=== PATIENT | female | born 1950 | race American Indian/Alaskan Native ===

== ENCOUNTER 2016-12-06 20:49 | Inpatient (IN) | payer MEDICARE ==
[2016-12-06] MEDS ORDERED: KEPPRA 1,000 MG/NS 0.75% 100ML 100 ML IV ONE ×2 (20:56→21:08)
[2016-12-06] MEDS ORDERED: ATIVAN ONE (20:56)
[2016-12-06] MEDS ORDERED: ATIVAN IV ONE (21:04)
[2016-12-06] MEDS ORDERED: KEPPRA 1,000 MG in D5W 100 ML IV ONE (21:06)
--- NOTE | 2016-12-06 22:17 | Emergency Department Report ---
ED General Adult HPI - General Chief complaint: Seizure Stated complaint: TREMORS Time Seen by Provider: 12/06/16 21:33 Source: patient, EMS (ems notes not available at time of chart dictation), RN notes reviewed, old records reviewed Mode of arrival: Stretcher Limitations: Altered Mental Status, Physical Limitation - History of Present Illness Initial comments: This is a 66-year-old female, whom I have evaluated in the past. Has a past medical history of hypertension, high cholesterol, seizure disorder. Also has a history of psychiatric disease, and meningioma resection. She is brought to the hospital by EMS for focal twitching in the left upper extremity. The patient cannot describe how long it has been going on for. She cannot describe exacerbating or relieving factors. I briefly evaluated the patient when she was being triaged upon arrival with EMS. I was concerned for status epilepticus partialis continua, and verbally ordered 2 mg of Ativan and 1 g of Keppra. When I went to go evaluate the patient, she was sleepy, and would speak very softly. She follows some commands but not all commands. She was unable to describe exacerbating or relieving factors. History is limited as the patient appears to be postictal. -: unknown Quality: other (as per hpi) Consistency: other (as per hpi) Improves with: other (as per hpi) Worsens with: other (as per hpi) Associated Symptoms: other (as per hpi) - Related Data Previous Rx's Medication Instructions Recorded Last Taken Type ALPRAZolam [Xanax TAB] 0.25 mg PO Q8H #90 tablet 07/15/16 Unknown Rx Citalopram [Celexa] 20 mg PO QDAY #30 tablet 07/15/16 Unknown Rx Hydrochlorothiazide [HCTZ] 25 mg PO QDAY #30 tablet 07/15/16 Unknown Rx Lisinopril [Zestril TAB] 40 mg PO QDAY #30 tablet 07/15/16 Unknown Rx Lisinopril [Zestril TAB] 40 mg PO QDAY #30 tablet 07/15/16 Unknown Rx Simvastatin [Zocor TAB] 1 tab PO QHS #30 tablet 07/15/16 Unknown Rx amLODIPine [Norvasc] 10 mg PO QDAY #30 tablet 07/15/16 Unknown Rx levETIRAcetam [Keppra TAB] 750 mg PO BID #60 tablet 07/15/16 Unknown Rx risperiDONE [RisperDAL] 2 mg PO QDAY #30 tablet 07/15/16 Unknown Rx Ciprofloxacin HCl [Ciprofloxacin 500 mg PO BID #20 tablet 09/09/16 Unknown Rx TAB] metroNIDAZOLE [Flagyl] 500 mg PO Q12HR #20 tab 09/09/16 Unknown Rx oxyCODONE /ACETAMINOPHEN [Percocet 1 tab PO Q6HR PRN #20 tablet 09/09/16 Unknown Rx 5/325] Allergies Allergy/AdvReac Type Severity Reaction Status Date / Time red dye Allergy Severe Shortness Verified 12/08/14 13:55 of Breath ED Review of Systems ROS: Stated complaint: TREMORS Other details as noted in HPI Comment: Unobtainable due to pts medical conditions ED Past Medical Hx - Past Medical History Previous Medical History?: Yes Hx Hypertension: Yes (SINCE 1985; EF listed on chart as 40%(mentioned on pre- admission notes)) Hx Diabetes: No Hx Deep Vein Thrombosis: No Hx Pulmonary Embolism: No Hx GERD: Yes Hx Liver Disease: No Hx Sickle Cell Disease: No Hx Arthritis: Yes Hx Seizures: Yes (ONE SEIZURE 2009, from brain tumor) Hx Asthma: Yes Hx COPD: No Hx Tuberculosis: No Additional medical history: MRSA infection - Surgical History Past Surgical History?: Yes Hx Pacemaker: No Hx Internal Defibrillator: No Hx Cholecystectomy: Yes Additional Surgical History: BRAIN SURGERY/CS - Social History Smoking Status: Never Smoker Substance Use Type: None - Medications Home Medications: Home Medications Medication Instructions Recorded Confirmed Last Taken Type ALPRAZolam [Xanax TAB] 0.25 mg PO Q8H #90 tablet 07/15/16 Unknown Rx Citalopram [Celexa] 20 mg PO QDAY #30 tablet 07/15/16 Unknown Rx Hydrochlorothiazide [HCTZ] 25 mg PO QDAY #30 tablet 07/15/16 Unknown Rx Lisinopril [Zestril TAB] 40 mg PO QDAY #30 tablet 07/15/16 Unknown Rx Lisinopril [Zestril TAB] 40 mg PO QDAY #30 tablet 07/15/16 Unknown Rx Simvastatin [Zocor TAB] 1 tab PO QHS #30 tablet 07/15/16 Unknown Rx amLODIPine [Norvasc] 10 mg PO QDAY #30 tablet 07/15/16 Unknown Rx levETIRAcetam [Keppra TAB] 750 mg PO BID #60 tablet 07/15/16 Unknown Rx risperiDONE [RisperDAL] 2 mg PO QDAY #30 tablet 07/15/16 Unknown Rx Ciprofloxacin HCl [Ciprofloxacin 500 mg PO BID #20 tablet 09/09/16 Unknown Rx TAB] metroNIDAZOLE [Flagyl] 500 mg PO Q12HR #20 tab 09/09/16 Unknown Rx oxyCODONE /ACETAMINOPHEN [Percocet 1 tab PO Q6HR PRN #20 tablet 09/09/16 Unknown Rx 5/325] ED Physical Exam - General Limitations: Altered Mental Status, Physical Limitation General appearance: in no apparent distress, lethargic - Eye Eye exam: Present: normal appearance, other (upon opening the patient's eyelids , both eyes are deviated to the left. the patient will move her eyes to the right, but they do not cross midline. appears to havemild left sided non- fatigable nystagmus.) - ENT ENT exam: Present: normal exam, normal orophraynx, normal external ear exam - Neck Neck exam: Present: normal inspection, full ROM. Absent: tenderness, meningismus - Respiratory Respiratory exam: Present: normal lung sounds bilaterally. Absent: respiratory distress, wheezes, rales, rhonchi, stridor, decreased breath sounds - Cardiovascular Cardiovascular Exam: Present: regular rate, normal rhythm, normal heart sounds. Absent: bradycardia, tachycardia, irregular rhythm, systolic murmur, diastolic murmur, rubs, gallop - GI/Abdominal GI/Abdominal exam: Present: soft, normal bowel sounds. Absent: distended, tenderness, guarding, rebound, rigid, pulsatile mass - Extremities Exam Extremities exam: Present: normal inspection, normal capillary refill, other ( patient was noted to be twitching her left upper extremity, this has since resolved. ). Absent: tenderness, pedal edema, joint swelling - Back Exam Back exam: Present: normal inspection. Absent: CVA tenderness (R), paraspinal tenderness, vertebral tenderness - Neurological Exam Neurological exam: Present: altered - Psychiatric Psychiatric exam: Present: flat affect ED Course Vital Signs 12/06/16 12/06/16 12/06/16 21:15 21:22 21:30 Temperature 96.5 F L Pulse Rate 71 Respiratory 14 18 Rate Blood Pressure Blood Pressure 119/84 [Right] O2 Sat by Pulse 92 99 99 Oximetry 12/06/16 12/06/16 12/06/16 22:00 23:06 23:20 Temperature 97.7 F Pulse Rate 75 74 66 Respiratory 16 15 16 Rate Blood Pressure 106/65 100/73 Blood Pressure 100/73 [Right] O2 Sat by Pulse 100 100 100 Oximetry 12/06/16 23:21 Temperature 97.7 F Pulse Rate Respiratory Rate Blood Pressure Blood Pressure [Right] O2 Sat by Pulse Oximetry - Reevaluation(s) Reevaluation #1: 12/06/16 22:17 Differential diagnosis: Resolved partial seizure, continuous partial seizure, urinary tract infection, pneumonia, intracranial events Assessment and plan: 66-year-old female who initially appeared to be presenting with a partial seizure. She was given Keppra and Ativan. She is somewhat sleepy, and postictal, and may be still having a partial seizure at this time. Laboratory studies, chest x -ray, rectal temperature, noncontrast CT scan of the head pending. Reevaluation #2: 12/06/16 22:47 EMS notes reviewed. Apparently, the patient contacted 911 for "tremors." EMS documents that the patient typically has normal grand mal seizures and that these tremors are different. The patient has remained conscious and alert and was having tremors in her left arm, left leg and face. Apparently, the patient was alert and oriented 4, mildly anxious, fingerstick of 89. Reevaluation #3: 12/07/16 00:55 I have gone back to reevaluate the patient multiple times. Her mental status is improving, but she is unable to ambulate even with a 2 person assist. She has mild left-sided weakness, and is unable to tell me if this is old or new. I am not certain if the patient is having persistent Mj's paralysis, or CVA. Patient was unable to give an exact onset of symptoms, and family was not available for corroborating history, therefore, she is not a TPA candidate. The case was discussed with the Hospital physician, Dr. Serrato, who accepted the patient to his service for persistent left-sided weakness, inability to ambulate. ED Medical Decision Making - Lab Data Result diagrams: 12/06/16 22:05 12/06/16 22:05 Vital Signs 12/06/16 12/06/16 21:22 21:30 Temperature 96.5 F L Pulse Rate 71 Respiratory 14 18 Rate Blood Pressure 119/84 [Right] O2 Sat by Pulse 99 99 Oximetry - EKG Data 12/06/16 22:18 Normal sinus, 72 bpm, normal axis, normal intervals, not consistent with STEMI. 12/06/16 22:20 - Radiology Data Radiology results: report reviewed, image reviewed Noncontrast CT scan of the brain demonstrates no acute disease. Chronic changes noted. Status post right frontal temporal craniotomy with pseudomeningocele. Underlying encephalomalacia and ex-vacuo dilatation the right lateral ventricle. X-ray chest negative Critical care attestation.: If time is entered above; I have spent that time in minutes in the direct care of this critically ill patient, excluding procedure time. ED Disposition Clinical Impression: Seizure, Left-sided weakness Disposition: OP ADMITTED IP TO THIS HOSP Is pt being admited?: Yes Condition: Good
[2016-12-06 22:25] LABS: Hematocrit 38.2 % (30.3-42.9); Hemoglobin 12.5 gm/dl (10.1-14.3); Mean Corpuscular HGB Conc 33 % (30-34); Mean Corpuscular Hemoglobin 32 pg (28-32); Mean Corpuscular Volume 98 fl (79-97); Platelet Count 235 K/mm3 (140-440); Red Blood Count 3.89 M/mm3 (3.65-5.03); Red Cell Distribution Width 13.7 % (13.2-15.2); White Blood Count 7.7 K/mm3 (4.5-11.0)
[2016-12-06 22:26] LABS: Basophils % (Auto) 0.4 % (0.0-1.8); Eosinophils % (Auto) 0.5 % (0.0-4.3)
--- NOTE | 2016-12-06 23:01 | Cat Scan Report ---
FINAL REPORT PROCEDURE: CT HEAD/BRAIN WO CON TECHNIQUE: Computerized tomography of the head was performed without contrast material. HISTORY: Seizure COMPARISON: 07/13/2016 FINDINGS: There has been right frontal/temporal craniectomy, with a pseudomeningocele, unchanged in size since the prior study. There is underlying encephalomalacia and ex vacuo dilatation of the right lateral ventricle. No change in size of the ventricles. Intracranial arteries are symmetric in density. No CT evidence of intracranial hemorrhage. No acute fracture is seen. Paranasal sinuses are aerated. IMPRESSION: No change in appearance since the prior study, with postsurgical changes and right pseudomeningocele as described above.
[2016-12-06 23:03] LABS: Alanine Aminotransferase 15 units/L (7-56); Albumin 3.4 g/dL (3.9-5); Albumin/Globulin Ratio 1.1 %; Alkaline Phosphatase 60 units/L (35-129); Anion Gap 19 mmol/L; BUN/Creatinine Ratio 16.66; Bilirubin,Total 0.5 mg/dL (0.1-1.2); Blood Urea Nitrogen 10 mg/dL (7-17); Calcium 9.2 mg/dL (8.4-10.2); Carbon Dioxide 18 mmol/L (22-30); Chloride 105.8 mmol/L (98-107); Creatine Kinase 169 units/L (30-135); Glucose 104 mg/dL (65-100); Sodium 139 mmol/L (137-145); Total Protein 6.4 g/dL (6.3-8.2)
[2016-12-06 23:06] LABS: Potassium 4.2 mmol/L (3.6-5.0)
[2016-12-06 23:40] LABS: Urine Drugs of Abuse Note Disclamer
[2016-12-07 00:04] LABS: Bilirubin,Urine NEG (Negative); Blood,Urine NEG (Negative); Ketones,Urine TR mg/dL (Negative); Leukocyte Esterase,Urine NEG (Negative); Mucus,Urine FEW /HPF; Nitrite,Urine NEG (Negative); Protein,Urine <15 mg/dL mg/dL (Negative); Urobilinogen,Urine < 2.0 mg/dL (<2.0)
--- NOTE | 2016-12-07 01:50 | Admit Criteria Form ---
Admission Criteria Documentation: SEIZURE Clinical Indications for Admission to Inpatient Care (Place 'X' for any and all applicable criteria): Admission is indicated for seizure and ANY ONE of the following(1)(2)(3)(4)(5): [X ]I. Inpatient admission required rather than observation care (Also use Seizure: Observation Care Criteria as appropriate) because of ANY ONE of the following: [ ]a) Altered mental status that is severe or persistent [ X]b) New focal neurologic deficit that is severe or persistent [ ]c) Metabolic disorder (eg, hypoglycemia, hyponatremia) that is severe or persistent [ ]d) Recurrent seizure [ ]e) Outpatient antiseizure regimen cannot be established (eg , patient cannot tolerate medication, initiation requires inpatient care) [ ]f) Need for ongoing intravenous infusion of antiseizure medication [ ]g) Cardiac arrhythmias of immediate concern [ ]h) Cerebral bleeding, hydrocephalus, or vasospasm monitoring (14) [ ]i) Increased intracranial pressure or cerebral edema monitoring (15) [ ]j) Other treatment or monitoring requiring inpatient admission [ ]II. Status epilepticus [A] or repetitive seizures not controlled with emergent treatment (6)(8) [ ]III. Brain disorder (eg, tumor, edema, and hydrocephalus) that requiring monitoring or intervention available only at inpatient level of care. [ ]IV. Brain insult (eg, severe trauma, stroke, drug toxicity, or withdrawal) that requires monitoring or intervention available only at inpatient level of care (10)(11) Extended stay beyond goal length of stay may be needed for (22) [ ]a) Complications of status epilepticus [ ]b) Refractory status epilepticus [ ]c) Etiology-specific therapy for conditions such as RESTAURANT HOSTESS infection, head injury,eclampsia, severe metabolic abnormalities, and brain tumor [ ]d) Residual neurologic damage, [ ]e) Initiation of significant change to anticonvulsant treatment [ ]f) Older patients (65 years or older) [ ]g) Patient requiring intubation (eg, to protect airway) The original [employer] [facility] content created by [employer] the [employer] has been revised. The portions of the content which have been revised are identified through the use of italic text or in bold, and [employer] [employer] has neither reviewed nor approved the modified material. All other unmodified content is copyright [facility] [employer]. Please see references footnoted in the original [facility] edition 2016 Admission Criteria Met: Yes
[2016-12-07] MEDS ORDERED: PERCOCET 5/325 PO PRN (08:09)
--- NOTE | 2016-12-07 08:09 | Event Note ---
Date: 12/07/16 See H/p in reports Active Seizures HTN Depression Schizophrenia
--- NOTE | 2016-12-07 08:16 | XRay Report ---
AP CHEST : 12/06/16 23:00 CLINICAL: Seizure. Suspect pneumonia. COMPARISON:07/14/16 FINDINGS: The lungs are mildly underexpanded but clear. The heart and pulmonary vessels are normal for the film technique. No tubes or lines. IMPRESSION: Negative chest.
--- NOTE | 2016-12-07 09:38 | History and Physical Report ---
CHIEF COMPLAINT: Seizures. HISTORY OF PRESENT ILLNESS: A 66-year-old female who presents with seizures involving focal twitching of the left upper extremity. The patient cannot describe how long that this has been going on. The patient cannot describe the exacerbating or relieving factors. In spite of getting 2 mg of Ativan and 1 g of Keppra, the patient was still having focal seizures in the left upper extremity. Some postictal or loss of altered sensorium. The patient also talking to herself. PAST MEDICAL HISTORY: Significant for anxiety disorder, depression, hypertension, hyperlipidemia, seizure disorder, and chronic pain. CURRENT MEDICATIONS: Xanax 0.25 q.8, Celexa 20 mg p.o. daily, hydrochlorothiazide 25 mg p.o. daily, lisinopril 20 mg p.o. daily, simvastatin one tablet at bedtime, amlodipine 10 mg p.o. daily, Keppra 750 b.i.d., Risperdal 2 mg p.o. daily, Cipro 500 p.o. b.i.d., metronidazole, Flagyl 500 mg p.o q.12, Percocet 5/325 q.6 p.r.n. ALLERGIES: RED DYE. PAST SURGICAL HISTORY: Cholecystectomy and brain meningioma removal. FAMILY HISTORY: Significant for hypertension. SOCIAL HISTORY: Does not smoke. No alcohol, no recreational drugs. REVIEW OF SYSTEMS: CONSTITUTIONAL: No weight loss, no weight gain, no fever, no chills. HEENT: No sore throat. No postnasal drip. No diplopia. RESPIRATORY SYSTEM: No shortness of breath. No cough. CARDIOVASCULAR SYSTEM: No chest pain, no palpitations, no diaphoresis. No exertional dyspnea. GASTROINTESTINAL: No nausea, no vomiting, no diarrhea. MUSCULOSKELETAL SYSTEM: No joint pains. No joint swelling. No muscle pains. BACK: Normal inspection. CENTRAL NERVOUS SYSTEM: The patient has focal seizures in the left upper extremity with altered sensorium. PSYCHIATRIC: The patient also talking to herself, has a flat affect. HEMATOLOGIC AND LYMPHATIC SYSTEM: No lymphadenopathy. NEUROLOGIC: No suicidal or homicidal ideations. A 14-point review of systems was done other than the focal seizures in the left upper extremity. Review of systems essentially negative. PHYSICAL EXAMINATION: GENERAL: Elderly female lying in bed, cooperative, intermittently altered sensorium, and not able to relate the surroundings. VITAL SIGNS: Blood pressure is 119/84, temperature is 96.5, pulse is 71, respirations are 18, sats 99%. HEENT: Unremarkable. Pupils equal and reactive. NECK: Supple, no lymphadenopathy, no thyromegaly. LUNGS: Clear to auscultation and percussion. Good air entry. CARDIOVASCULAR SYSTEM: S1, S2 heard. No gallop, no murmur, no rub. Apical impulse in the left fifth intercostal space and midclavicular line. ABDOMEN: Soft and benign. No hepatosplenomegaly. No guarding, no rigidity. Hernial orifices are normal. EXTREMITIES: Good pedal pulses. No pedal edema. CENTRAL NERVOUS SYSTEM: Some focal seizures with altered sensorium, also the patient talking to herself. SKIN: Normal. LABORATORY DATA: Significant for white count of 7700, H and H is 12.5 and 38.2, platelet count is 235,000. Sodium is 139, potassium is 4.2, chloride is 105, bicarbonate is 18, BUN and creatinine is 10 and 0.6. LFTs are normal. Glucose is 104. CK is 169, albumin is 3.4, slightly low. Drug screen was negative. Head CT was negative. No change in appearance with the past study. Post-surgical changes and right pseudomeningocele as described. Chest x-ray was negative. ER COURSE: The patient was given IV Ativan and Keppra. The patient became more sleepy and postictal and still having partial seizures intermittently. The patient may have some mild left-sided weakness. ASSESSMENT AND PLAN: 1. Status epilepticus secondary to partial seizures in the left upper extremity. We will consult Neurologist. In the meantime, IV Keppra 750 q.12 started. The patient on Keppra 750 p.o. b.i.d. at home, but the question of compliance arises. The patient had altered sensorium, so cannot confirm the compliance. We will interview the family members. We will defer to regular daytime hospitalist. I asked the family about the compliance. 2. Schizophrenia, again the compliance issue comes into place. The patient was restarted on Celexa and Respirdal. 3. Anxiety disorder. Continue alprazolam 0.25 q.8. 4. Depression. Continue Celexa 20 mg p.o. daily. 5. Hypertension. Continue lisinopril 40 mg daily and amlodipine 10 mg p.o. daily. 6. Chronic pain. The patient on Percocet 5/325. Continue the same. 7. Hyperlipidemia. Continue simvastatin 20 mg p.o. daily. 8. Deep venous thrombosis prophylaxis, Lovenox 40 mg subcutaneous daily. [facility]# [id number] VSM/MATT MTDD
[2016-12-07] MEDS: KEPPRA 750 MG in D5W 100 ML IV SCH ×2 (09:48→22:25)
[2016-12-07] MEDS: RisperDAL PO SCH (09:49)
[2016-12-07] MEDS: NORVASC PO SCH (09:50)
[2016-12-07] MEDS: ZESTRIL PO SCH (09:51)
[2016-12-07] MEDS: celeXA PO SCH (09:52)
[2016-12-07] MEDS: HCTZ PO SCH (09:52)
[2016-12-07] MEDS: XANAX PO SCH ×3 (09:52→22:25)
[2016-12-07] MEDS: ZOCOR PO SCH (22:25)
[2016-12-08] MEDS: XANAX PO SCH ×3 (06:46→22:08)
[2016-12-08] MEDS: NORVASC PO SCH ×2 (08:11→10:10)
[2016-12-08] MEDS: HCTZ PO SCH ×2 (08:11→10:10)
[2016-12-08] MEDS: ZESTRIL PO SCH ×2 (08:11→10:11)
[2016-12-08] MEDS ORDERED: APRESOLINE IV PRN (09:47)
[2016-12-08] MEDS: RisperDAL PO SCH (10:18)
[2016-12-08] MEDS: celeXA PO SCH (10:19)
[2016-12-08] MEDS: KEPPRA 750 MG in D5W 100 ML IV SCH ×2 (11:16→22:08)
[2016-12-08] MEDS: ZOCOR PO SCH (22:08)
[2016-12-09] MEDS: XANAX PO SCH (05:45)
[2016-12-09] MEDS: KEPPRA 750 MG in D5W 100 ML IV SCH (10:35)
[2016-12-09] MEDS: celeXA PO SCH (10:35)
[2016-12-09] MEDS: HCTZ PO SCH (10:36)
[2016-12-09] MEDS: RisperDAL PO SCH (10:36)
[2016-12-09] MEDS: NORVASC PO SCH (10:36)
[2016-12-09] MEDS: ZESTRIL PO SCH (10:36)
[2016-12-09 11:36] VITALS: BP 152/76
--- NOTE | 2016-12-09 11:52 | Discharge Summary ---
Providers - Providers Date of Admission: 12/07/16 01:22 Attending physician: IGOR GILMAN 12/07/16 08:11 Consult to Mental Health [CONS] Routine Reason For Exam: Schizophrenia Place consult to:: mental health Notified:: mental health Phone number called:: [phone] Was contact made?: Yes If yes, spoke with:: magdy Time called:: 09:45 Consult to Physician [CONS] Routine Consulting Provider: VLADISLAV CORLEY Reason For Exam: Seizures Place consult to:: dr. corley Notified:: answering machine Phone number called:: [phone] Was contact made?: No Time called:: 09:50 Primary care physician: [facility] REG[facility]ED NURSE Hospitalization Condition: Good Hospital course: 66 YO Female admitted for Status Epilepticus. Pt treated with supportive care and restarting Keppra. Pt convalesced well during hospital course. Pt symptoms resolved with anti epileptic therapy. Pt medically optimized and back to usual state of health. Pt evaluated prior to discharge but no significant new physical exam findings. Pt discharged home and instructed to f/u pcp 1wk and psychiatry as directed, 35 minutes dedicated to patient discharge and education. Disposition: DISCHARGED TO HOME OR SELFCARE - Discharge Diagnoses (1) Status epilepticus Status: Acute (2) Depression Status: Acute (3) Hypertension Status: Acute Comment: Patient blood pressure well controlled his particular time continue current medications. (4) Paranoia (psychosis) Status: Acute (5) Psychosis Status: Acute (6) DVT prophylaxis Status: Acute Core Measure Documentation - Palliative Care Palliative Care/ Comfort Measures: Not Applicable - Core Measures Any of the following diagnoses?: none Exam - Constitutional Vitals: Temp Pulse Resp BP Pulse Ox 98.0 F 75 20 152/76 98 12/09/16 11:35 12/09/16 11:35 12/09/16 11:35 12/09/16 11:35 12/09/16 11:35 General appearance: Present: no acute distress, well-nourished - EENT Eyes: Present: PERRL ENT: hearing intact, clear oral mucosa - Neck Neck: Present: supple, normal ROM - Respiratory Respiratory effort: normal Respiratory: bilateral: CTA - Cardiovascular Heart Sounds: Present: S1 & S2. Absent: rub, click - Extremities Extremities: pulses symmetrical, No edema Peripheral Pulses: within normal limits - Abdominal General gastrointestinal: Present: soft, non-tender, non-distended, normal bowel sounds Female genitourinary: Present: normal - Integumentary Integumentary: Present: clear, warm, dry - Musculoskeletal Musculoskeletal: gait normal, strength equal bilaterally - Psychiatric Psychiatric: appropriate mood/affect, intact judgment & insight - Neurologic Neurologic: CNII-XII intact, moves all extremities Plan Activity: advance as tolerated, no driving until cleared by PCP Follow up with: PRIMARY CARE,MD [Primary Care Provider] - 3-5 Days Prescriptions: levETIRAcetam [Keppra TAB] 500 mg PO BID #60 tablet
[2016-12-09] MEDS ORDERED: FLUARIX QUAD 2016-2017(36 MOS+) IM ONE (13:00)
== END 2016-12-09 12:51 | disposition home or self-care (01) | DRG 101 ==
LOC: ED 20:49 → 3A 12-07 01:22
PROVIDERS: ADMIT Internal Medicine; ATTEND Internal Medicine
DX: G40.901 Epilepsy, unspecified, not intractable, with status epilepticus (principal); F41.9 Anxiety disorder, unspecified; F32.9 Major depressive disorder, single episode, unspecified; I10 Essential (primary) hypertension; E78.5 Hyperlipidemia, unspecified; G89.29 Other chronic pain; F20.9 Schizophrenia, unspecified; E78.00 Pure hypercholesterolemia, unspecified; K21.9 Gastro-esophageal reflux disease without esophagitis; M19.90 Unspecified osteoarthritis, unspecified site; J45.909 Unspecified asthma, uncomplicated; Z90.49 Acquired absence of other specified parts of digestive tract; Z98.890 Other specified postprocedural states; Z82.49 Family history of ischemic heart disease and other diseases of the circulatory system; Z79.899 Other long term (current) drug therapy; Z91.041 Radiographic dye allergy status
CPT/HCPCS: 36415; 70450; 71010; 80053; 80307; 81001; 82550; 82962; 85025; 90471; 90686; 93005; 93010; 96365; 96375; G0008; J1953; J2060

== ENCOUNTER 2016-12-19 15:34 | Inpatient (IN) | payer MEDICARE ==
--- NOTE | 2016-12-19 16:42 | Emergency Department Report ---
HPI - General Chief Complaint: Altered Mental Status Time Seen by Provider: 12/19/16 16:25 - HPI HPI: Room 21 The patient is a 66-year-old female presenting with a chief complaint of "altered mental status." History is obtained from EMS as they state the patient 's son found the patient with "altered mental status" claiming that she was sluggish and had slurred speech. The patient's last known well time is unknown. The patient appears fatigued and gives vague responses when asked if anything is bothering her. There is no family available to obtain further history at the time of this interview. 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 - Surgical History Past Surgical History?: Yes Hx Cholecystectomy: Yes Additional Surgical History: BRAIN SURGERY/CS - Family History Family history: no significant - Social History Smoking Status: Unknown if ever smoked Substance Use Type: None - Medications Home Medications: Home Medications Medication Instructions Recorded Confirmed Last Taken Type ALPRAZolam [Xanax TAB] 0.25 mg PO Q8H #90 tablet 07/15/16 12/09/16 1 Day Ago Rx Citalopram [Celexa] 20 mg PO QDAY #30 tablet 07/15/16 12/09/16 Unknown Rx Hydrochlorothiazide [HCTZ] 25 mg PO QDAY #30 tablet 07/15/16 12/09/16 1 Day Ago Rx Lisinopril [Zestril TAB] 40 mg PO QDAY #30 tablet 07/15/16 12/09/16 Unknown Rx Lisinopril [Zestril TAB] 40 mg PO QDAY #30 tablet 07/15/16 12/09/16 1 Day Ago Rx Simvastatin [Zocor TAB] 1 tab PO QHS #30 tablet 07/15/16 12/09/16 3 Days Ago Rx amLODIPine [Norvasc] 10 mg PO QDAY #30 tablet 07/15/16 12/09/16 3 Days Ago Rx risperiDONE [RisperDAL] 2 mg PO QDAY #30 tablet 07/15/16 12/09/16 1 Month Ago Rx oxyCODONE /ACETAMINOPHEN [Percocet 1 tab PO Q6HR PRN #20 tablet 09/09/16 2 Days Ago Rx 5/325] levETIRAcetam [Keppra TAB] 500 mg PO BID #60 tablet 12/09/16 Unknown Rx ED Review of Systems ROS: Stated complaint: AMS/HYPERTENSION Other details as noted in HPI Comment: Unobtainable due to pts medical conditions Physical Exam - Physical Exam Vital Signs: Vital Signs 12/19/16 12/19/16 16:07 16:16 Temperature 97.5 F L Pulse Rate 113 H Respiratory 20 Rate Blood Pressure 116/61 Blood Pressure 116/61 [Left] O2 Sat by Pulse 100 Oximetry Physical Exam: GENERAL: The patient is well-developed female lying on stretcher exhibiting malaise not appearing to be in acute distress HEENT: Large scar from right parietal craniotomy present. Atraumatic. Extraocular motions are intact. Patient has moist mucous membranes. NECK: Supple. Trachea midline CHEST/LUNGS: Clear to auscultation. There is no respiratory distress noted. HEART/CARDIOVASCULAR: Regular. There is tachycardia. There is no gallop rub or murmur. ABDOMEN: Abdomen is soft, nontender. Patient has normal bowel sounds. There is no abdominal distention. SKIN: There is no rash. There is no edema. There is no diaphoresis. NEURO: The patient is awake but exhibits malaise. The patient is cooperative. Cranial nerves II through XII grossly intact. The patient has normal speech. Normal sensation bilateral lower extremities MUSCULOSKELETAL:There is no evidence of acute injury. ED Course Vital Signs 12/19/16 12/19/16 16:07 16:16 Temperature 97.5 F L Pulse Rate 113 H Respiratory 20 Rate Blood Pressure 116/61 Blood Pressure 116/61 [Left] O2 Sat by Pulse 100 Oximetry ED Medical Decision Making - Lab Data Result diagrams: 12/19/16 16:27 12/19/16 16:27 Laboratory Tests 12/19/16 12/19/16 12/19/16 16:27 16:27 16:27 WBC 11.6 H RBC 4.57 Hgb 14.2 Hct 44.1 H MCV 97 MCH 31 MCHC 32 RDW 13.3 Plt Count 268 Lymph % (Auto) 9.3 L [place] % (Auto) 10.8 H Eos % (Auto) 0.2 Baso % (Auto) 0.1 Lymph # 1.1 L [place] # 1.3 H Eos # 0.0 Baso # 0.0 Seg Neutrophils % 79.6 H Seg Neutrophils # 9.2 H Sodium 140 Potassium 3.3 L Chloride 93.9 L Carbon Dioxide 19 L Anion Gap 30 BUN 53 H Creatinine 0.9 Estimated GFR > 60 BUN/Creatinine Ratio 58.88 Glucose 89 POC Glucose Lactic Acid 1.1 Calcium 11.5 H Magnesium 2.4 H Total Bilirubin 0.4 AST 58 H ALT 45 Alkaline Phosphatase 70 Total Protein 6.8 Albumin 3.5 L Albumin/Globulin Ratio 1.1 TSH Urine Color Urine Turbidity Urine pH Ur Specific [place] Urine Protein Urine Glucose (UA) Urine Ketones Urine Blood Urine Nitrite Urine Bilirubin Urine Ictotest Urine Urobilinogen Ur Leukocyte Esterase Urine WBC (Auto) Urine RBC (Auto) U Epithel Cells (Auto) Urine Bacteria (Auto) Hyaline Casts Urine Mucus Salicylates Urine Opiates Screen Urine Methadone Screen Acetaminophen Ur Barbiturates Screen Ur Phencyclidine Scrn Ur Amphetamines Screen U Benzodiazepines Scrn Urine Cocaine Screen U Marijuana (THC) Screen Plasma/Serum Alcohol 12/19/16 12/19/16 12/19/16 16:27 16:27 16:27 WBC RBC Hgb Hct MCV MCH MCHC RDW Plt Count Lymph % (Auto) [place] % (Auto) Eos % (Auto) Baso % (Auto) Lymph # [place] # Eos # Baso # Seg Neutrophils % Seg Neutrophils # Sodium Potassium Chloride Carbon Dioxide Anion Gap BUN Creatinine Estimated GFR BUN/Creatinine Ratio Glucose POC Glucose Lactic Acid Calcium Magnesium Total Bilirubin AST ALT Alkaline Phosphatase Total Protein Albumin Albumin/Globulin Ratio TSH 1.230 Urine Color Urine Turbidity Urine pH Ur Specific [place] Urine Protein Urine Glucose (UA) Urine Ketones Urine Blood Urine Nitrite Urine Bilirubin Urine Ictotest Urine Urobilinogen Ur Leukocyte Esterase Urine WBC (Auto) Urine RBC (Auto) U Epithel Cells (Auto) Urine Bacteria (Auto) Hyaline Casts Urine Mucus Salicylates < 0.3 L Urine Opiates Screen Urine Methadone Screen Acetaminophen < 15.0 Ur Barbiturates Screen Ur Phencyclidine Scrn Ur Amphetamines Screen U Benzodiazepines Scrn Urine Cocaine Screen U Marijuana (THC) Screen Plasma/Serum Alcohol 12/19/16 12/19/16 12/19/16 16:27 16:35 17:19 WBC RBC Hgb Hct MCV MCH MCHC RDW Plt Count Lymph % (Auto) [place] % (Auto) Eos % (Auto) Baso % (Auto) Lymph # [place] # Eos # Baso # Seg Neutrophils % Seg Neutrophils # Sodium Potassium Chloride Carbon Dioxide Anion Gap BUN Creatinine Estimated GFR BUN/Creatinine Ratio Glucose POC Glucose 94 Lactic Acid Calcium Magnesium Total Bilirubin AST ALT Alkaline Phosphatase Total Protein Albumin Albumin/Globulin Ratio TSH Urine Color Yellow Urine Turbidity Clear Urine pH 5.0 Ur Specific [place] 1.018 Urine Protein <15 mg/dl Urine Glucose (UA) Neg Urine Ketones 20 Urine Blood Neg Urine Nitrite Neg Urine Bilirubin Neg Urine Ictotest Not Reportable Urine Urobilinogen < 2.0 Ur Leukocyte Esterase Neg Urine WBC (Auto) 6.0 Urine RBC (Auto) 17.0 U Epithel Cells (Auto) 1.0 Urine Bacteria (Auto) 4+ Hyaline Casts 6 Urine Mucus 1+ Salicylates Urine Opiates Screen Urine Methadone Screen Acetaminophen Ur Barbiturates Screen Ur Phencyclidine Scrn Ur Amphetamines Screen U Benzodiazepines Scrn Urine Cocaine Screen U Marijuana (THC) Screen Plasma/Serum Alcohol < 0.01 12/19/16 17:19 WBC RBC Hgb Hct MCV MCH MCHC RDW Plt Count Lymph % (Auto) [place] % (Auto) Eos % (Auto) Baso % (Auto) Lymph # [place] # Eos # Baso # Seg Neutrophils % Seg Neutrophils # Sodium Potassium Chloride Carbon Dioxide Anion Gap BUN Creatinine Estimated GFR BUN/Creatinine Ratio Glucose POC Glucose Lactic Acid Calcium Magnesium Total Bilirubin AST ALT Alkaline Phosphatase Total Protein Albumin Albumin/Globulin Ratio TSH Urine Color Urine Turbidity Urine pH Ur Specific [place] Urine Protein Urine Glucose (UA) Urine Ketones Urine Blood Urine Nitrite Urine Bilirubin Urine Ictotest Urine Urobilinogen Ur Leukocyte Esterase Urine WBC (Auto) Urine RBC (Auto) U Epithel Cells (Auto) Urine Bacteria (Auto) Hyaline Casts Urine Mucus Salicylates Urine Opiates Screen Presumptive negative Urine Methadone Screen Presumptive negative Acetaminophen Ur Barbiturates Screen Presumptive negative Ur Phencyclidine Scrn Presumptive negative Ur Amphetamines Screen Presumptive negative U Benzodiazepines Scrn Presumptive negative Urine Cocaine Screen Presumptive negative U Marijuana (THC) Screen Presumptive negative Plasma/Serum Alcohol - EKG Data -: EKG Interpreted by Me EKG shows normal: sinus rhythm Rate: tachycardia (112 bpm) - EKG Data When compared to previous EKG there are: previous EKG unavailable - Radiology Data Radiology results: report reviewed (CT head), image reviewed (CT head) CT head (read by radiologist)-no acute intracranial process noted. No change, postsurgical changes and right pseudomeningocele again noted. - Differential Diagnosis altered mental status, UTI, dehydration Critical care attestation.: If time is entered above; I have spent that time in minutes in the direct care of this critically ill patient, excluding procedure time. ED Disposition Clinical Impression: Altered mental status, Dehydration Disposition: OP ADMITTED IP TO THIS HOSP Is pt being admited?: Yes Does the pt Need Aspirin: Yes Condition: Stable Referrals: PRIMARY CARE, [Primary Care Provider] - 3-5 Days Time of Disposition: 17:51 (hospitalist paged)
[2016-12-19 16:50] LABS: Basophils % (Auto) 0.1 % (0.0-1.8); Eosinophils % (Auto) 0.2 % (0.0-4.3); Hematocrit 44.1 % (30.3-42.9); Hemoglobin 14.2 gm/dl (10.1-14.3); Mean Corpuscular HGB Conc 32 % (30-34); Mean Corpuscular Hemoglobin 31 pg (28-32); Mean Corpuscular Volume 97 fl (79-97); Platelet Count 268 K/mm3 (140-440); Red Blood Count 4.57 M/mm3 (3.65-5.03); Red Cell Distribution Width 13.3 % (13.2-15.2); White Blood Count 11.6 K/mm3 (4.5-11.0)
--- NOTE | 2016-12-19 17:05 | Cat Scan Report ---
FINAL REPORT EXAM: CT HEAD/BRAIN WO CON HISTORY: altered mental status TECHNIQUE: Standard unenhanced CT of the head at 5.0 and 2.5 millimeter axial increments. PRIORS: CT head 12/06/2016 FINDINGS: There has been right frontal/temporal craniectomy, with a pseudomeningocele, unchanged in size since the prior study. There is underlying encephalomalacia and ex vacuo dilatation of the right lateral ventricle. The ventricular system is otherwise normal in size and configuration. There is no evidence for new mass lesion, mass effect, midline shift, acute intracranial hemorrhage, or acute ischemia/ infarction. No evidence for acute skull fracture is seen. Visualized paranasal sinuses are clear. No abnormality in the overlying scalp soft tissues is seen. IMPRESSION: No acute intracranial process noted. No change. Postsurgical changes and right pseudomeningocele again noted
[2016-12-19 17:09] LABS: Alanine Aminotransferase 45 units/L (7-56); Albumin 3.5 g/dL (3.9-5); Albumin/Globulin Ratio 1.1 %; Alkaline Phosphatase 70 units/L (35-129); BUN/Creatinine Ratio 58.88; Bilirubin,Total 0.4 mg/dL (0.1-1.2); Blood Urea Nitrogen 53 mg/dL (7-17); Calcium 11.5 mg/dL (8.4-10.2); Carbon Dioxide 19 mmol/L (22-30); Chloride 93.9 mmol/L (98-107); Glucose 89 mg/dL (65-100); Magnesium 2.4 mg/dL (1.7-2.3); Potassium 3.3 mmol/L (3.6-5.0); Sodium 140 mmol/L (137-145); Total Protein 6.8 g/dL (6.3-8.2)
[2016-12-19 17:13] LABS: Urine Drugs of Abuse Note Disclamer
[2016-12-19 17:24] LABS: Bacteria,Urine 4+ /HPF (Negative); Bilirubin,Urine NEG (Negative); Blood,Urine NEG (Negative); Ketones,Urine 20 mg/dL (Negative); Leukocyte Esterase,Urine NEG (Negative); Mucus,Urine 1+ /HPF; Nitrite,Urine NEG (Negative); Protein,Urine <15 mg/dL mg/dL (Negative); Urobilinogen,Urine < 2.0 mg/dL (<2.0)
[2016-12-19 17:26] LABS: Anion Gap 30 mmol/L
[2016-12-19] MEDS ORDERED: NACL 0.9% 1000 ML 1,000 ML IV ONE (17:28)
[2016-12-19] MEDS ORDERED: ASPIRIN PO ONE (17:51)
--- NOTE | 2016-12-19 18:06 | Admit Criteria Form ---
Admission Criteria Documentation: MENTAL STATUS CHANGE Clinical Indications for Inpatient Care (Place 'X' for any and all applicable criteria): Ongoing inpatient care may be needed for ANY ONE of the following(1)(2)(3)(5)(6) : [ ]I. Suspected serious etiology (eg, medical disorder, SWITCH REPAIRER event) of mental status change [ ]II. Danger to self or others not manageable at lower level of care [ ]III. Grave disability (eg, inability to perform self care necessary at lower level of care) [ ]IV. Agitation or inappropriate behavior interfering with care for primary condition (eg, attempting to discontinue lines or drains prematurely, unable to cooperate with respiratory care) [ ]V. Delirium [A] [D][E] as described by ANY ONE of the following(26): [ ]a) Delirium due to alcohol or sedative [F] withdrawal [ ]b) Delirium of uncertain etiology that has not responded to appropriate empiric treatment [ ]c) Delirium that prevents performance of a life-sustaining function (eg, feeding or hydrating oneself) [ X]. General contraindications and/or Inappropriate clinical situations for Observational Care in patients with Mental Status Change, when ANY ONE of the following is required: [ X]a) Prediction of prolongation of LOS based on ANY ONE of the following may be considered as a contraindication for observational care 2, 3, 4, 5, 6, 7, 8, 9, 10, 11 [ X]i) Age > 65 yrs. [ ]ii) Patient arriving by ambulance [ ]iii) Patient with high acuity [ ]iv) Patient requiring vital sign monitoring [ ]v) Patient on IV medication [ ]b) Systolic blood pressures 180mmHg 3,12 [ ]c) Patient with altered mental status including delirium and other alteration of consciousness, (3) [ ]d) Patient whose discharge disposition will be to a fdc home or rehabilitation home should not be managed in Emergency Department Observation Unit. CMS rule requires 3 days hospital stay before such placement.3,13 [ ]e) Patient with failure to thrive due to broad array of etiologies 3,16,17 [ ]f) Inability to ambulate 3,14 Extended stay beyond goal length of stay for the primary condition may be needed until ALL of the following are present(3)(5): [ ]a) Underlying medical etiology of mental status change is absent, or has been established and adequately treated [ ]b) Danger to self or others is absent or manageable at lower level of care. [ ]c) Behavior crisis management, including physical or chemical restraints, is not required or available at lower level of car [ ]d) Substance or alcohol withdrawal is absent or manageable at lower level of care. [ ]e) Behavioral symptoms (eg, agitation, somnolence, inappropriate behavior) are absent, or are manageable at lower level of care. The original [facility] [employer] content created by [facility] has been revised. The portions of the content which have been revised are identified through the use of italic text or in bold, and [facility] has neither reviewed nor approved the modified material. All other unmodified content is copyright [facility]. Please see references footnoted in the original [facility] edition 2016 Admission Criteria Met: Yes
--- NOTE | 2016-12-19 19:03 | History and Physical Report ---
History of Present Illness Date of examination: 12/19/16 Date of admission: 12/19/16 Chief complaint: Altered mental status History of present illness: Patient is 66-year-old with history of hypertension, seizure disorder, meningioma status post craniotomy surgery. She was brought in by paramedics because of altered mental status apparently patient has been very lethargic, decreased level of consciousness. There is no family member to give further history and patient cannot say much. CT head was unremarkable. Labs show dehydration. She is being admitted for further management. No witnessed seizures. Past History Past Medical History: GERD (the), hypertension (attention), other (asthma, seizures, brain abscess, meningioma) Past Surgical History: Other (craniotomy for meningioma) Social history: lives with family, smoking (no smoking), alcohol abuse (no alcohol), full code Family history: hypertension Medications and Allergies Allergies Allergy/AdvReac Type Severity Reaction Status Date / Time red dye Allergy Severe Shortness Verified 12/08/14 13:55 of Breath Home Medications Medication Instructions Recorded Confirmed Last Taken Type ALPRAZolam [Xanax TAB] 0.25 mg PO Q8H #90 tablet 07/15/16 12/19/16 1 Day Ago Rx Citalopram [Celexa] 20 mg PO QDAY #30 tablet 07/15/16 12/19/16 Unknown Rx Hydrochlorothiazide [HCTZ] 25 mg PO QDAY #30 tablet 07/15/16 12/19/16 1 Day Ago Rx Lisinopril [Zestril TAB] 40 mg PO QDAY #30 tablet 07/15/16 12/19/16 Unknown Rx Lisinopril [Zestril TAB] 40 mg PO QDAY #30 tablet 07/15/16 12/19/16 1 Day Ago Rx Simvastatin [Zocor TAB] 1 tab PO QHS #30 tablet 07/15/16 12/19/16 3 Days Ago Rx amLODIPine [Norvasc] 10 mg PO QDAY #30 tablet 07/15/16 12/19/16 3 Days Ago Rx risperiDONE [RisperDAL] 2 mg PO QDAY #30 tablet 07/15/16 12/19/16 1 Month Ago Rx oxyCODONE /ACETAMINOPHEN [Percocet 1 tab PO Q6HR PRN #20 tablet 09/09/16 2 Days Ago Rx 5/325] levETIRAcetam [Keppra TAB] 500 mg PO BID #60 tablet 12/09/16 12/19/16 Unknown Rx Active Meds: Active Medications Sodium Chloride (Nacl 0.9% 1000 Ml) 1,000 mls @ 250 mls/hr IV ONCE ONE Stop: 12/19/16 21:27 Last Admin: 12/19/16 17:35 Dose: 250 mls/hr Review of Systems ROS unobtainable: due to mental status Exam - Physical Exam Narrative exam: Gen appearance: not in acute distress, obese HEENT: Craniotomy scar on the head Neck : supple, no JVD Lungs: Clear to auscultation bilaterally, no crackles or wheezes. Heart : S1 and S2 regular, no murmurs rubs or gallop, Abdomen: soft nontender, nondistended, normal bowel sounds Extremities: No edema, no clubbing or cyanosis, Neuro : Lethargic , drowsy , follows commands - Constitutional Vitals: Temp Pulse Resp BP Pulse Ox 97.5 F L 110 H 16 91/64 100 12/19/16 16:16 12/19/16 17:36 12/19/16 17:36 12/19/16 17:36 12/19/16 17:36 Results - Labs CBC & Chem 7: 12/19/16 16:27 12/19/16 16:27 Labs: Abnormal lab results 12/19/16 12/19/16 12/19/16 Range/Units 16:27 16:27 16:27 WBC 11.6 H (4.5-11.0) K/mm3 Hct 44.1 H (30.3-42.9) % Lymph % (Auto) 9.3 L (13.4-35.0) % [place] % (Auto) 10.8 H (0.0-7.3) % Lymph # 1.1 L (1.2-5.4) K/mm3 [place] # 1.3 H (0.0-0.8) K/mm3 Seg Neutrophils % 79.6 H (40.0-70.0) % Seg Neutrophils # 9.2 H (1.8-7.7) K/mm3 Potassium 3.3 L (3.6-5.0) mmol/L Chloride 93.9 L (98-107) mmol/L Carbon Dioxide 19 L (22-30) mmol/L BUN 53 H (7-17) mg/dL Calcium 11.5 H (8.4-10.2) mg/dL Magnesium 2.4 H (1.7-2.3) mg/dL AST 58 H (5-40) units/L Albumin 3.5 L (3.9-5) g/dL Salicylates < 0.3 L (2.8-20.0) mg/dL Assessment and Plan Acute metabolic encephalopathy. Patient brought in for altered mental status and is diagnosed with encephalopathy. This is likely due to dehydration. Admits to medical floor with remote telemetry. Neuro checks every [address] head was unremarkable Dehydration. BUN is 5349 with creatinine of 0.9. She has been start IV fluids and repeat BMP in the morning. Hypertension. Blood pressure on the low side. Will give IV fluid bolus. Seizure disorder. We'll give Keppra IV since patient is lethargic cannot swallow right now Dysphagia due to lethargy. check swallow eval tomorrow. Hypokalemia. replace iv History of meningioma status post craniotomy DVT prophylaxis with heparin subcutaneous. Full CODE STATUS
[2016-12-19] MEDS ORDERED: ZOFRAN IV PRN (19:04)
[2016-12-19] MEDS ORDERED: DULCOLAX PR PRN (19:04)
[2016-12-19] MEDS ORDERED: KEPPRA 500 MG in D5W 100 ML IV ONE (19:09)
[2016-12-19] MEDS ORDERED: [UNRECOGNIZED DRUG - OTHER] IV ONE (19:19)
[2016-12-19] MEDS ORDERED: KEPPRA IV ONE (19:19)
[2016-12-19] MEDS ORDERED: NACL 0.9% 1000 ML 1,000 ML ONE (20:02)
[2016-12-19] MEDS ORDERED: NACL 0.9% 1000 ML IV STA (21:21)
[2016-12-20 08:27] LABS: Basophils % (Auto) 0.2 % (0.0-1.8); Eosinophils % (Auto) 0.8 % (0.0-4.3); Hematocrit 36.6 % (30.3-42.9); Hemoglobin 12.3 gm/dl (10.1-14.3); Mean Corpuscular HGB Conc 34 % (30-34); Mean Corpuscular Hemoglobin 31 pg (28-32); Mean Corpuscular Volume 93 fl (79-97); Platelet Count 252 K/mm3 (140-440); Red Blood Count 3.92 M/mm3 (3.65-5.03); White Blood Count 6.9 K/mm3 (4.5-11.0)
[2016-12-20 08:37] LABS: BUN/Creatinine Ratio 58.57; Blood Urea Nitrogen 41 mg/dL (7-17); Calcium 10.6 mg/dL (8.4-10.2); Carbon Dioxide 28 mmol/L (22-30); Chloride 103.7 mmol/L (98-107); Glucose 116 mg/dL (65-100); Sodium 142 mmol/L (137-145)
[2016-12-20 08:59] LABS: Anion Gap 13 mmol/L
[2016-12-20] MEDS: LOVENOX SUB-Q SCH (09:46)
[2016-12-20] MEDS ORDERED: LOVENOX SUB-Q SCH (10:00)
[2016-12-20] MEDS: KCL 10MEQ/100ML 100 ML IV SCH ×2 (12:44→14:23)
[2016-12-20] MEDS ORDERED: MORPHINE IV PRN (14:37)
--- NOTE | 2016-12-20 14:41 | Progress Note ---
Assessment and Plan Assessment and plan: Acute metabolic encephalopathy. This is likely due to dehydration. She is improving - she is more alert today. Continue Neuro checks every [address] head was unremarkable Dehydration. BUN is now 41 down from 53 on admission. continue IV fluids. Hypotension. Improved on iv fluids. Seizure disorder. Continue Keppra IV since patient is lethargic cannot swallow right now Dysphagia due to lethargy. check swallow eval tomorrow. Hypokalemia. replace iv History of meningioma status post craniotomy DVT prophylaxis with heparin subcutaneous. Full CODE STATUS History Interval history: feels better, more alert complains of back pain Hospitalist Physical - Physical exam Narrative exam: Gen appearance: not in acute distress, obese HEENT: Craniotomy scar on the head Neck : supple, no JVD Lungs: Clear to auscultation bilaterally, no crackles or wheezes. Heart : S1 and S2 regular, no murmurs rubs or gallop, Abdomen: soft nontender, nondistended, normal bowel sounds Extremities: No edema, no clubbing or cyanosis, Neuro : Lethargic , drowsy ,more alert than yesterday, follows commands, speaks few words - Constitutional Vitals: Temp Pulse Resp BP Pulse Ox 98.6 F 110 H 18 108/70 98 12/20/16 08:00 12/20/16 08:00 12/20/16 08:00 12/20/16 08:00 12/20/16 08:00 Results - Labs CBC & Chem 7: 12/20/16 07:10 12/20/16 07:10 Labs: Laboratory Last Values WBC 6.9 K/mm3 (4.5-11.0) 12/20/16 07:10 RBC 3.92 M/mm3 (3.65-5.03) 12/20/16 07:10 Hgb 12.3 gm/dl (10.1-14.3) 12/20/16 07:10 Hct 36.6 % (30.3-42.9) D 12/20/16 07:10 MCV 93 fl (79-97) D 12/20/16 07:10 MCH 31 pg (28-32) 12/20/16 07:10 MCHC 34 % (30-34) 12/20/16 07:10 RDW 13.0 % (13.2-15.2) L 12/20/16 07:10 Plt Count 252 K/mm3 (140-440) 12/20/16 07:10 Lymph % (Auto) 17.5 % (13.4-35.0) 12/20/16 07:10 [place] % (Auto) 11.2 % (0.0-7.3) H 12/20/16 07:10 Eos % (Auto) 0.8 % (0.0-4.3) 12/20/16 07:10 Baso % (Auto) 0.2 % (0.0-1.8) 12/20/16 07:10 Lymph # 1.2 K/mm3 (1.2-5.4) 12/20/16 07:10 [place] # 0.8 K/mm3 (0.0-0.8) 12/20/16 07:10 Eos # 0.1 K/mm3 (0.0-0.4) 12/20/16 07:10 Baso # 0.0 K/mm3 (0.0-0.1) 12/20/16 07:10 Seg Neutrophils % 70.3 % (40.0-70.0) H 12/20/16 07:10 Seg Neutrophils # 4.9 K/mm3 (1.8-7.7) 12/20/16 07:10 Sodium 142 mmol/L (137-145) 12/20/16 07:10 Potassium 3.0 mmol/L (3.6-5.0) L 12/20/16 07:10 Chloride 103.7 mmol/L (98-107) 12/20/16 07:10 Carbon Dioxide 28 mmol/L (22-30) D 12/20/16 07:10 Anion Gap 13 mmol/L 12/20/16 07:10 BUN 41 mg/dL (7-17) H 12/20/16 07:10 Creatinine 0.7 mg/dL (0.7-1.2) 12/20/16 07:10 Estimated GFR > 60 ml/min 12/20/16 07:10 BUN/Creatinine Ratio 58.57 % 12/20/16 07:10 Glucose 116 mg/dL (65-100) H 12/20/16 07:10 POC Glucose 94 (70-105) 12/19/16 16:35 Lactic Acid 1.1 mmol/L (0.7-2.0) 12/19/16 19:07 Calcium 10.6 mg/dL (8.4-10.2) H 12/20/16 07:10 Magnesium 2.4 mg/dL (1.7-2.3) H 12/19/16 16:27 Total Bilirubin 0.4 mg/dL (0.1-1.2) 12/19/16 16:27 AST 58 units/L (5-40) H 12/19/16 16:27 ALT 45 units/L (7-56) 12/19/16 16:27 Alkaline Phosphatase 70 units/L (35-129) 12/19/16 16:27 Total Protein 6.8 g/dL (6.3-8.2) 12/19/16 16:27 Albumin 3.5 g/dL (3.9-5) L 12/19/16 16:27 Albumin/Globulin Ratio 1.1 % 12/19/16 16:27 TSH 1.230 mlU/mL (0.270-4.200) 12/19/16 16:27 Urine Color Yellow (Yellow) 12/19/16 17:19 Urine Turbidity Clear (Clear) 12/19/16 17:19 Urine pH 5.0 (5.0-7.0) 12/19/16 17:[address] 1.018 (1.003-1.030) 12/19/16 17:19 Urine Protein <15 mg/dl mg/dL (Negative) 12/19/16 17:19 Urine Glucose (UA) Neg mg/dL (Negative) 12/19/16 17:19 Urine Ketones 20 mg/dL (Negative) 12/19/16 17:19 Urine Blood Neg (Negative) 12/19/16 17:19 Urine Nitrite Neg (Negative) 12/19/16 17:19 Urine Bilirubin Neg (Negative) 12/19/16 17:19 Urine Ictotest Not Reportable 12/19/16 17:19 Urine Urobilinogen < 2.0 mg/dL (<2.0) 12/19/16 17:19 Ur Leukocyte Esterase Neg (Negative) 12/19/16 17:19 Urine WBC (Auto) 6.0 /HPF (0.0-6.0) 12/19/16 17:19 Urine RBC (Auto) 17.0 /HPF (0.0-6.0) 12/19/16 17:19 U Epithel Cells (Auto) 1.0 /HPF (0-13.0) 12/19/16 17:19 Urine Bacteria (Auto) 4+ /HPF (Negative) 12/19/16 17:19 Hyaline Casts 6 /LPF 12/19/16 17:19 Urine Mucus 1+ /HPF 12/19/16 17:19 Salicylates < 0.3 mg/dL (2.8-20.0) L 12/19/16 16:27 Urine Opiates Screen Presumptive negative 12/19/16 17:19 Urine Methadone Screen Presumptive negative 12/19/16 17:19 Acetaminophen < 15.0 ug/mL (10.0-30.0) 12/19/16 16:27 Ur Barbiturates Screen Presumptive negative 12/19/16 17:19 Ur Phencyclidine Scrn Presumptive negative 12/19/16 17:19 Ur Amphetamines Screen Presumptive negative 12/19/16 17:19 U Benzodiazepines Scrn Presumptive negative 12/19/16 17:19 Urine Cocaine Screen Presumptive negative 12/19/16 17:19 U Marijuana (THC) Screen Presumptive negative 12/19/16 17:19 Drugs of Abuse Note Disclamer 12/19/16 17:19 Plasma/Serum Alcohol < 0.01 gm% (0-0.07) 12/19/16 16:27
[2016-12-20] MEDS: D5/0.45NS 1,000 ML IV SCH (16:15)
[2016-12-21] MEDS: LOVENOX SUB-Q SCH (16:00)
[2016-12-21 16:02] LABS: Blood Urea Nitrogen 22 mg/dL (7-17); Calcium 10.5 mg/dL (8.4-10.2); Carbon Dioxide 28 mmol/L (22-30); Chloride 108.7 mmol/L (98-107); Glucose 102 mg/dL (65-100); Potassium 3.1 mmol/L (3.6-5.0); Sodium 146 mmol/L (137-145)
[2016-12-21 16:03] LABS: Anion Gap 12 mmol/L
--- NOTE | 2016-12-21 16:25 | Progress Note ---
Assessment and Plan Assessment and plan: Acute metabolic encephalopathy due to dehydration. She is improving - she is more alert today. Continue Neuro checks every [address] head was unremarkable. Dehydration. BUN is now 22 down from 53 on admission. continue IV fluids. Hypotension. Improved on iv fluids. Seizure disorder. Continue Keppra IV . Dysphagia due to lethargy. Now starting mechanical soft diet. Hyponatremia. We'll change IV fluid to 5% dextrose at 75 mL an hour Hypokalemia. replace iv History of meningioma status post craniotomy DVT prophylaxis with heparin subcutaneous. Full CODE STATUS History Interval history: feels better, more alert, Hospitalist Physical - Physical exam Narrative exam: Gen appearance: not in acute distress, obese HEENT: Craniotomy scar on the head Neck : supple, no JVD Lungs: Clear to auscultation bilaterally, no crackles or wheezes. Heart : S1 and S2 regular, no murmurs rubs or gallop, Abdomen: soft nontender, nondistended, normal bowel sounds Extremities: No edema, no clubbing or cyanosis, Neuro : Lethargy improving, more alert , - Constitutional Vitals: Temp Pulse Resp BP Pulse Ox 97.8 F 101 H 16 124/75 98 12/21/16 03:55 12/21/16 03:55 12/21/16 03:55 12/21/16 03:55 12/21/16 03:55 Results - Labs CBC & Chem 7: 12/20/16 07:10 12/21/16 07:29 Labs: Laboratory Last Values WBC 6.9 K/mm3 (4.5-11.0) 12/20/16 07:10 RBC 3.92 M/mm3 (3.65-5.03) 12/20/16 07:10 Hgb 12.3 gm/dl (10.1-14.3) 12/20/16 07:10 Hct 36.6 % (30.3-42.9) D 12/20/16 07:10 MCV 93 fl (79-97) D 12/20/16 07:10 MCH 31 pg (28-32) 12/20/16 07:10 MCHC 34 % (30-34) 12/20/16 07:10 RDW 13.0 % (13.2-15.2) L 12/20/16 07:10 Plt Count 252 K/mm3 (140-440) 12/20/16 07:10 Lymph % (Auto) 17.5 % (13.4-35.0) 12/20/16 07:10 [place] % (Auto) 11.2 % (0.0-7.3) H 12/20/16 07:10 Eos % (Auto) 0.8 % (0.0-4.3) 12/20/16 07:10 Baso % (Auto) 0.2 % (0.0-1.8) 12/20/16 07:10 Lymph # 1.2 K/mm3 (1.2-5.4) 12/20/16 07:10 [place] # 0.8 K/mm3 (0.0-0.8) 12/20/16 07:10 Eos # 0.1 K/mm3 (0.0-0.4) 12/20/16 07:10 Baso # 0.0 K/mm3 (0.0-0.1) 12/20/16 07:10 Seg Neutrophils % 70.3 % (40.0-70.0) H 12/20/16 07:10 Seg Neutrophils # 4.9 K/mm3 (1.8-7.7) 12/20/16 07:10 Sodium 146 mmol/L (137-145) H 12/21/16 07:29 Potassium 3.1 mmol/L (3.6-5.0) L 12/21/16 07:29 Chloride 108.7 mmol/L (98-107) H 12/21/16 07:29 Carbon Dioxide 28 mmol/L (22-30) 12/21/16 07:29 Anion Gap 12 mmol/L 12/21/16 07:29 BUN 22 mg/dL (7-17) H 12/21/16 07:29 Creatinine 0.5 mg/dL (0.7-1.2) L 12/21/16 07:29 Estimated GFR > 60 ml/min 12/21/16 07:29 BUN/Creatinine Ratio 44.00 % 12/21/16 07:29 Glucose 102 mg/dL (65-100) H 12/21/16 07:29 POC Glucose 94 (70-105) 12/19/16 16:35 Lactic Acid 1.1 mmol/L (0.7-2.0) 12/19/16 19:07 Calcium 10.5 mg/dL (8.4-10.2) H 12/21/16 07:29 Magnesium 2.4 mg/dL (1.7-2.3) H 12/19/16 16:27 Total Bilirubin 0.4 mg/dL (0.1-1.2) 12/19/16 16:27 AST 58 units/L (5-40) H 12/19/16 16:27 ALT 45 units/L (7-56) 12/19/16 16:27 Alkaline Phosphatase 70 units/L (35-129) 12/19/16 16:27 Total Protein 6.8 g/dL (6.3-8.2) 12/19/16 16:27 Albumin 3.5 g/dL (3.9-5) L 12/19/16 16:27 Albumin/Globulin Ratio 1.1 % 12/19/16 16:27 TSH 1.230 mlU/mL (0.270-4.200) 12/19/16 16:27 Urine Color Yellow (Yellow) 12/19/16 17:19 Urine Turbidity Clear (Clear) 12/19/16 17:19 Urine pH 5.0 (5.0-7.0) 12/19/16 17:19 Ur Specific [place] 1.018 (1.003-1.030) 12/19/16 17:19 Urine Protein <15 mg/dl mg/dL (Negative) 12/19/16 17:19 Urine Glucose (UA) Neg mg/dL (Negative) 12/19/16 17:19 Urine Ketones 20 mg/dL (Negative) 12/19/16 17:19 Urine Blood Neg (Negative) 12/19/16 17:19 Urine Nitrite Neg (Negative) 12/19/16 17:19 Urine Bilirubin Neg (Negative) 12/19/16 17:19 Urine Ictotest Not Reportable 12/19/16 17:19 Urine Urobilinogen < 2.0 mg/dL (<2.0) 12/19/16 17:19 Ur Leukocyte Esterase Neg (Negative) 12/19/16 17:19 Urine WBC (Auto) 6.0 /HPF (0.0-6.0) 12/19/16 17:19 Urine RBC (Auto) 17.0 /HPF (0.0-6.0) 12/19/16 17:19 U Epithel Cells (Auto) 1.0 /HPF (0-13.0) 12/19/16 17:19 Urine Bacteria (Auto) 4+ /HPF (Negative) 12/19/16 17:19 Hyaline Casts 6 /LPF 12/19/16 17:19 Urine Mucus 1+ /HPF 12/19/16 17:19 Salicylates < 0.3 mg/dL (2.8-20.0) L 12/19/16 16:27 Urine Opiates Screen Presumptive negative 12/19/16 17:19 Urine Methadone Screen Presumptive negative 12/19/16 17:19 Acetaminophen < 15.0 ug/mL (10.0-30.0) 12/19/16 16:27 Ur Barbiturates Screen Presumptive negative 12/19/16 17:19 Ur Phencyclidine Scrn Presumptive negative 12/19/16 17:19 Ur Amphetamines Screen Presumptive negative 12/19/16 17:19 U Benzodiazepines Scrn Presumptive negative 12/19/16 17:19 Urine Cocaine Screen Presumptive negative 12/19/16 17:19 U Marijuana (THC) Screen Presumptive negative 12/19/16 17:19 Drugs of Abuse Note Disclamer 12/19/16 17:19 Plasma/Serum Alcohol < 0.01 gm% (0-0.07) 12/19/16 16:27
[2016-12-21] MEDS: D5/0.45NS 1,000 ML IV SCH (17:22)
[2016-12-21 19:49] LABS: Blood Urea Nitrogen 17 mg/dL (7-17); Calcium 10.6 mg/dL (8.4-10.2); Carbon Dioxide 27 mmol/L (22-30); Chloride 109.6 mmol/L (98-107); Glucose 105 mg/dL (65-100); Potassium 3.1 mmol/L (3.6-5.0); Sodium 147 mmol/L (137-145)
[2016-12-21 19:53] LABS: Anion Gap 14 mmol/L
[2016-12-21] MEDS: D5W 1,000 ML IV SCH (23:00)
[2016-12-22 07:28] LABS: Anion Gap 14 mmol/L; Blood Urea Nitrogen 11 mg/dL (7-17); Calcium 9.8 mg/dL (8.4-10.2); Carbon Dioxide 26 mmol/L (22-30); Chloride 106.2 mmol/L (98-107); Glucose 106 mg/dL (65-100); Sodium 143 mmol/L (137-145)
[2016-12-22] MEDS ORDERED: POTASSIUM CHLORIDE PO SCH (08:00)
[2016-12-22] MEDS: LOVENOX SUB-Q SCH (09:42)
--- NOTE | 2016-12-22 09:43 | Discharge Summary ---
Providers - Providers Date of Admission: 12/19/16 19:04 Date of discharge: 12/22/16 Attending physician: ERROL MEHTA 12/20/16 09:09 Speech Therapy Evaluation and Treat [CONS] Routine Reason For Exam: swallow eval 12/21/16 13:14 Speech Therapy Evaluation and Treat [CONS] Urgent Reason For Exam: For swallow eval Primary care physician: [employer] Hospitalization Condition: Fair Disposition: DISCHARGED TO HOME OR SELFCARE - Discharge Diagnoses (1) Acute metabolic encephalopathy Status: Acute (2) Dehydration Status: Acute (3) Meningioma Status: Chronic (4) Seizure disorder Status: Chronic Core Measure Documentation - Palliative Care Palliative Care/ Comfort Measures: Not Applicable - Core Measures Any of the following diagnoses?: none Exam - Constitutional Vitals: Temp Pulse Resp BP Pulse Ox 98.0 F 83 20 142/73 98 12/22/16 04:00 12/22/16 04:00 12/22/16 04:00 12/22/16 04:00 12/22/16 04:00 Plan Activity: advance as tolerated Diet: other (mechanical soft) Additional Instructions: 1.Follow up with PCP in 1 week. Follow up with: PRIMARY CARE, [Primary Care Provider] - 3-5 Days Prescriptions: Potassium Chloride [K-Dur] 40 meq PO QDAY 5 Days
[2016-12-22] MEDS ORDERED: NORCO 5/325 PO PRN (12:42)
--- NOTE | 2016-12-22 13:53 | Progress Note ---
Assessment and Plan Assessment and plan: Acute metabolic encephalopathy due to dehydration. She is much improved-awake, alert. Continue Neuro checks every [address] head was unremarkable. Dehydration. BUN is now 10 with Cr 0.5. Will d/c iv fluids. Hypotension. Resolved on iv fluids. Seizure disorder. Continue Keppra IV . Dysphagia improved, now started on Mechanical soft diet. . Hyponatremia. Resolved Hypokalemia. replace po and recheck History of meningioma status post craniotomy DVT prophylaxis with heparin subcutaneous. Full CODE STATUS Disposition. Family requesting SNF placement, saying they cannot take care of her at home. History Interval history: feels better, more alert, Family says they are unable to take care of her and requesting placement. Hospitalist Physical - Physical exam Narrative exam: Gen appearance: not in acute distress, obese HEENT: Craniotomy scar on the head Neck : supple, no JVD Lungs: Clear to auscultation bilaterally, no crackles or wheezes. Heart : S1 and S2 regular, no murmurs rubs or gallop, Abdomen: soft nontender, nondistended, normal bowel sounds Extremities: No edema, no clubbing or cyanosis, Neuro : Fully awake,alert, oriented x 3, - Constitutional Vitals: Temp Pulse Resp BP Pulse Ox 98.0 F 86 18 132/84 99 12/22/16 08:10 12/22/16 08:10 12/22/16 08:10 12/22/16 08:10 12/22/16 08:10 Results - Labs CBC & Chem 7: 12/20/16 07:10 12/22/16 19:37 Labs: Laboratory Last Values WBC 6.9 K/mm3 (4.5-11.0) 12/20/16 07:10 RBC 3.92 M/mm3 (3.65-5.03) 12/20/16 07:10 Hgb 12.3 gm/dl (10.1-14.3) 12/20/16 07:10 Hct 36.6 % (30.3-42.9) D 12/20/16 07:10 MCV 93 fl (79-97) D 12/20/16 07:10 MCH 31 pg (28-32) 12/20/16 07:10 MCHC 34 % (30-34) 12/20/16 07:10 RDW 13.0 % (13.2-15.2) L 12/20/16 07:10 Plt Count 252 K/mm3 (140-440) 12/20/16 07:10 Lymph % (Auto) 17.5 % (13.4-35.0) 12/20/16 07:10 [place] % (Auto) 11.2 % (0.0-7.3) H 12/20/16 07:10 Eos % (Auto) 0.8 % (0.0-4.3) 12/20/16 07:10 Baso % (Auto) 0.2 % (0.0-1.8) 12/20/16 07:10 Lymph # 1.2 K/mm3 (1.2-5.4) 12/20/16 07:10 [place] # 0.8 K/mm3 (0.0-0.8) 12/20/16 07:10 Eos # 0.1 K/mm3 (0.0-0.4) 12/20/16 07:10 Baso # 0.0 K/mm3 (0.0-0.1) 12/20/16 07:10 Seg Neutrophils % 70.3 % (40.0-70.0) H 12/20/16 07:10 Seg Neutrophils # 4.9 K/mm3 (1.8-7.7) 12/20/16 07:10 Sodium 143 mmol/L (137-145) 12/22/16 06:52 Potassium 3.0 mmol/L (3.6-5.0) L 12/22/16 06:52 Chloride 106.2 mmol/L (98-107) 12/22/16 06:52 Carbon Dioxide 26 mmol/L (22-30) 12/22/16 06:52 Anion Gap 14 mmol/L 12/22/16 06:52 BUN 11 mg/dL (7-17) 12/22/16 06:52 Creatinine 0.5 mg/dL (0.7-1.2) L 12/22/16 06:52 Estimated GFR > 60 ml/min 12/22/16 06:52 BUN/Creatinine Ratio 22.00 % 12/22/16 06:52 Glucose 106 mg/dL (65-100) H 12/22/16 06:52 POC Glucose 140 (70-105) H 12/22/16 11:28 Lactic Acid 1.1 mmol/L (0.7-2.0) 12/19/16 19:07 Calcium 9.8 mg/dL (8.4-10.2) 12/22/16 06:52 Magnesium 2.4 mg/dL (1.7-2.3) H 12/19/16 16:27 Total Bilirubin 0.4 mg/dL (0.1-1.2) 12/19/16 16:27 AST 58 units/L (5-40) H 12/19/16 16:27 ALT 45 units/L (7-56) 12/19/16 16:27 Alkaline Phosphatase 70 units/L (35-129) 12/19/16 16:27 Total Protein 6.8 g/dL (6.3-8.2) 12/19/16 16:27 Albumin 3.5 g/dL (3.9-5) L 12/19/16 16:27 Albumin/Globulin Ratio 1.1 % 12/19/16 16:27 TSH 1.230 mlU/mL (0.270-4.200) 12/19/16 16:27 Urine Color Yellow (Yellow) 12/19/16 17:19 Urine Turbidity Clear (Clear) 12/19/16 17:19 Urine pH 5.0 (5.0-7.0) 12/19/16 17:19 Ur Specific [place] 1.018 (1.003-1.030) 12/19/16 17:19 Urine Protein <15 mg/dl mg/dL (Negative) 12/19/16 17:19 Urine Glucose (UA) Neg mg/dL (Negative) 12/19/16 17:19 Urine Ketones 20 mg/dL (Negative) 12/19/16 17:19 Urine Blood Neg (Negative) 12/19/16 17:19 Urine Nitrite Neg (Negative) 12/19/16 17:19 Urine Bilirubin Neg (Negative) 12/19/16 17:19 Urine Ictotest Not Reportable 12/19/16 17:19 Urine Urobilinogen < 2.0 mg/dL (<2.0) 12/19/16 17:19 Ur Leukocyte Esterase Neg (Negative) 12/19/16 17:19 Urine WBC (Auto) 6.0 /HPF (0.0-6.0) 12/19/16 17:19 Urine RBC (Auto) 17.0 /HPF (0.0-6.0) 12/19/16 17:19 U Epithel Cells (Auto) 1.0 /HPF (0-13.0) 12/19/16 17:19 Urine Bacteria (Auto) 4+ /HPF (Negative) 12/19/16 17:19 Hyaline Casts 6 /LPF 12/19/16 17:19 Urine Mucus 1+ /HPF 12/19/16 17:19 Salicylates < 0.3 mg/dL (2.8-20.0) L 12/19/16 16:27 Urine Opiates Screen Presumptive negative 12/19/16 17:19 Urine Methadone Screen Presumptive negative 12/19/16 17:19 Acetaminophen < 15.0 ug/mL (10.0-30.0) 12/19/16 16:27 Ur Barbiturates Screen Presumptive negative 12/19/16 17:19 Ur Phencyclidine Scrn Presumptive negative 12/19/16 17:19 Ur Amphetamines Screen Presumptive negative 12/19/16 17:19 U Benzodiazepines Scrn Presumptive negative 12/19/16 17:19 Urine Cocaine Screen Presumptive negative 12/19/16 17:19 U Marijuana (THC) Screen Presumptive negative 12/19/16 17:19 Drugs of Abuse Note Disclamer 12/19/16 17:19 Plasma/Serum Alcohol < 0.01 gm% (0-0.07) 12/19/16 16:27
[2016-12-22] MEDS: D5W 1,000 ML IV SCH (16:40)
[2016-12-22] MEDS ORDERED: POTASSIUM CHLORIDE PO ONE (17:30)
[2016-12-22 20:11] LABS: Anion Gap 16 mmol/L; Blood Urea Nitrogen 10 mg/dL (7-17); Calcium 9.6 mg/dL (8.4-10.2); Carbon Dioxide 25 mmol/L (22-30); Chloride 102.2 mmol/L (98-107); Glucose 156 mg/dL (65-100); Potassium 3.9 mmol/L (3.6-5.0); Sodium 139 mmol/L (137-145)
[2016-12-23] MEDS: LOVENOX SUB-Q SCH (10:45)
--- NOTE | 2016-12-23 11:52 | Progress Note ---
Hospitalist Physical - Constitutional Vitals: Temp Pulse Resp BP Pulse Ox 98.5 F 87 18 145/82 100 12/23/16 08:02 12/23/16 08:02 12/23/16 08:02 12/23/16 08:02 12/23/16 08:02 Results - Labs CBC & Chem 7: 12/20/16 07:10 12/22/16 19:37 Labs: Laboratory Last Values WBC 6.9 K/mm3 (4.5-11.0) 12/20/16 07:10 RBC 3.92 M/mm3 (3.65-5.03) 12/20/16 07:10 Hgb 12.3 gm/dl (10.1-14.3) 12/20/16 07:10 Hct 36.6 % (30.3-42.9) D 12/20/16 07:10 MCV 93 fl (79-97) D 12/20/16 07:10 MCH 31 pg (28-32) 12/20/16 07:10 MCHC 34 % (30-34) 12/20/16 07:10 RDW 13.0 % (13.2-15.2) L 12/20/16 07:10 Plt Count 252 K/mm3 (140-440) 12/20/16 07:10 Lymph % (Auto) 17.5 % (13.4-35.0) 12/20/16 07:10 [place] % (Auto) 11.2 % (0.0-7.3) H 12/20/16 07:10 Eos % (Auto) 0.8 % (0.0-4.3) 12/20/16 07:10 Baso % (Auto) 0.2 % (0.0-1.8) 12/20/16 07:10 Lymph # 1.2 K/mm3 (1.2-5.4) 12/20/16 07:10 [place] # 0.8 K/mm3 (0.0-0.8) 12/20/16 07:10 Eos # 0.1 K/mm3 (0.0-0.4) 12/20/16 07:10 Baso # 0.0 K/mm3 (0.0-0.1) 12/20/16 07:10 Seg Neutrophils % 70.3 % (40.0-70.0) H 12/20/16 07:10 Seg Neutrophils # 4.9 K/mm3 (1.8-7.7) 12/20/16 07:10 Sodium 139 mmol/L (137-145) 12/22/16 19:37 Potassium 3.9 mmol/L (3.6-5.0) D 12/22/16 19:37 Chloride 102.2 mmol/L (98-107) 12/22/16 19:37 Carbon Dioxide 25 mmol/L (22-30) 12/22/16 19:37 Anion Gap 16 mmol/L 12/22/16 19:37 BUN 10 mg/dL (7-17) 12/22/16 19:37 Creatinine 0.5 mg/dL (0.7-1.2) L 12/22/16 19:37 Estimated GFR > 60 ml/min 12/22/16 19:37 BUN/Creatinine Ratio 20.00 % 12/22/16 19:37 Glucose 156 mg/dL (65-100) H 12/22/16 19:37 POC Glucose 89 (70-105) 12/22/16 16:19 Lactic Acid 1.1 mmol/L (0.7-2.0) 12/19/16 19:07 Calcium 9.6 mg/dL (8.4-10.2) 12/22/16 19:37 Magnesium 2.4 mg/dL (1.7-2.3) H 12/19/16 16:27 Total Bilirubin 0.4 mg/dL (0.1-1.2) 12/19/16 16:27 AST 58 units/L (5-40) H 12/19/16 16:27 ALT 45 units/L (7-56) 12/19/16 16:27 Alkaline Phosphatase 70 units/L (35-129) 12/19/16 16:27 Total Protein 6.8 g/dL (6.3-8.2) 12/19/16 16:27 Albumin 3.5 g/dL (3.9-5) L 12/19/16 16:27 Albumin/Globulin Ratio 1.1 % 12/19/16 16:27 TSH 1.230 mlU/mL (0.270-4.200) 12/19/16 16:27 Urine Color Yellow (Yellow) 12/19/16 17:19 Urine Turbidity Clear (Clear) 12/19/16 17:19 Urine pH 5.0 (5.0-7.0) 12/19/16 17:19 Ur Specific [place] 1.018 (1.003-1.030) 12/19/16 17:19 Urine Protein <15 mg/dl mg/dL (Negative) 12/19/16 17:19 Urine Glucose (UA) Neg mg/dL (Negative) 12/19/16 17:19 Urine Ketones 20 mg/dL (Negative) 12/19/16 17:19 Urine Blood Neg (Negative) 12/19/16 17:19 Urine Nitrite Neg (Negative) 12/19/16 17:19 Urine Bilirubin Neg (Negative) 12/19/16 17:19 Urine Ictotest Not Reportable 12/19/16 17:19 Urine Urobilinogen < 2.0 mg/dL (<2.0) 12/19/16 17:19 Ur Leukocyte Esterase Neg (Negative) 12/19/16 17:19 Urine WBC (Auto) 6.0 /HPF (0.0-6.0) 12/19/16 17:19 Urine RBC (Auto) 17.0 /HPF (0.0-6.0) 12/19/16 17:19 U Epithel Cells (Auto) 1.0 /HPF (0-13.0) 12/19/16 17:19 Urine Bacteria (Auto) 4+ /HPF (Negative) 12/19/16 17:19 Hyaline Casts 6 /LPF 12/19/16 17:19 Urine Mucus 1+ /HPF 12/19/16 17:19 Salicylates < 0.3 mg/dL (2.8-20.0) L 12/19/16 16:27 Urine Opiates Screen Presumptive negative 12/19/16 17:19 Urine Methadone Screen Presumptive negative 12/19/16 17:19 Acetaminophen < 15.0 ug/mL (10.0-30.0) 12/19/16 16:27 Ur Barbiturates Screen Presumptive negative 12/19/16 17:19 Ur Phencyclidine Scrn Presumptive negative 12/19/16 17:19 Ur Amphetamines Screen Presumptive negative 12/19/16 17:19 U Benzodiazepines Scrn Presumptive negative 12/19/16 17:19 Urine Cocaine Screen Presumptive negative 01/30/17 17:19 U Marijuana (THC) Screen Presumptive negative 12/19/16 17:19 Drugs of Abuse Note Disclamer 12/19/16 17:19 Plasma/Serum Alcohol < 0.01 gm% (0-0.07) 12/19/16 16:27
[2016-12-23 15:24] VITALS: BP 145/85
--- NOTE | 2016-12-24 17:48 | Event Note ---
Date: 12/23/16 Patient going to SNF today. She was seen and examined. Vitals stable. Lungs clear, heart sounds regular.
== END 2016-12-23 18:00 | DRG 314 ==
LOC: ED 15:34 → 3A 19:04
PROVIDERS: ADMIT Internal Medicine; ATTEND Internal Medicine
DX: I95.9 Hypotension, unspecified (principal); G93.41 Metabolic encephalopathy; E87.1 Hypo-osmolality and hyponatremia; E86.0 Dehydration; R13.10 Dysphagia, unspecified; I10 Essential (primary) hypertension; K21.9 Gastro-esophageal reflux disease without esophagitis; M19.90 Unspecified osteoarthritis, unspecified site; J45.909 Unspecified asthma, uncomplicated; G40.909 Epilepsy, unspecified, not intractable, without status epilepticus; E87.6 Hypokalemia; Z86.14 Personal history of Methicillin resistant Staphylococcus aureus infection; Z90.49 Acquired absence of other specified parts of digestive tract; Z98.890 Other specified postprocedural states; Z79.899 Other long term (current) drug therapy; Z82.49 Family history of ischemic heart disease and other diseases of the circulatory system; Z91.041 Radiographic dye allergy status; Z86.61 Personal history of infections of the central nervous system
CPT/HCPCS: 36415; 70450; 80048; 80053; 80307; 80320; 81001; 82140; 82962; 83735; 84443; 85025; 93005; 93010; 96361; 96365; 96366; G0480; G8978-GP; G8979-GP; G8980-GP; G8996-GN; G8997-GN; J1650; J1953; J2270; J3480; J7030; J7070

== ENCOUNTER 2017-02-27 12:41 | Outpatient (CLI) | payer MEDICARE ==
--- NOTE | 2017-02-27 15:13 | Magnetic Resonance Report ---
MRI OF THE BRAIN WITHOUT CONTRAST: HISTORY: Meningioma, brain mass PROCEDURE: Multiplanar, multisequence MR imaging of the brain without IV contrast was performed. FINDINGS: Please note the patient refused IV contrast imaging secondary to severe shoulder pain in the MRI machine. Compared to 05/05/16. Right frontotemporal craniectomy changes are again noted. 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 There is cortical encephalomalacia throughout the lateral right frontal lobe and anterior right temporal lobe which is stable. A 1.8 x 1.4 cm meningioma is again identified in the subfrontal region of the right anterior cranial fossa. This appears unchanged in size and contour since 05/05/16. There are moderate nonspecific chronic white matter changes which are most pronounced in the right cerebral hemisphere. Compensatory enlargement of the right lateral ventricle is again noted and unchanged. Ventricular size is stable. No evidence for acute ischemia, hemorrhage or recurrent mass. The posterior fossa and contents are within normal limits. The orbital cavities and sella turcica demonstrate no abnormality. The visualized paranasal sinuses and mastoid air cells are well aerated. IMPRESSION: Slightly limited exam without IV gadolinium, see above. The right frontal meningioma has not significantly changed since 04/25/16 exam. Stable encephalomalacia in the right cerebral hemisphere. Stable chronic white matter changes. 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
== END 2017-02-27 12:42 | disposition home or self-care (01) ==
LOC: SPVIMAG 12:41
PROVIDERS: ATTEND Neurological Surgery
DX: D32.0 Benign neoplasm of cerebral meninges (principal)
CPT/HCPCS: 70551

== ENCOUNTER 2018-08-09 00:28 | Emergency (ER) | payer MEDICARE ==
[2018-08-09] MEDS ORDERED: KEPPRA 1,000 MG/NS 0.75% 100ML 1,000 MG/100 ML BAG IV ONE (00:43)
[2018-08-09] MEDS ORDERED: ATIVAN IV ONE (00:44)
--- NOTE | 2018-08-09 00:48 | Emergency Department Report ---
ED Seizure HPI - General Stated Complaint: SEIZURE Time Seen by Provider: 08/09/18 00:35 Source: patient, EMS Mode of arrival: Stretcher Limitations: No Limitations - History of Present Illness Initial Comments: Patient is 67-year-old female presents emergency room with complaints of a seizure. Patient states that she has missed a few doses of her Keppra. Patient arrived by EMS and was given 2 of Ativan in route. Patient's seizure involves her left leg and left arm and does not have a postictal stage. Patient denies chest pain shortness of breath. Patient denies headache. Patient denies any physical complaints. Patient is a and O 4 MD Complaint: seizure -: Sudden Seizure History: history of non-compliance Place: home Possible Precipitating Event: medication Associated Symptoms: denies: chest pain, confusion, cough, diaphoresis, fever/ chills, loss of appetite, malaise, rash, shortness of breath, syncope, weakness , tongue injury, shoulder dislocation Treatments Prior to Arrival: benzodiazepines - Related Data Previous Rx's Medication Instructions Recorded Last Taken Type RX: ALPRAZolam [Xanax TAB] 0.25 mg PO Q8H #90 tablet 07/15/16 1 Day Ago Rx ~12/08/16 RX: Citalopram [Celexa] 20 mg PO QDAY #30 tablet 07/15/16 Unknown Rx RX: Lisinopril [Zestril TAB] 40 mg PO QDAY #30 tablet 07/15/16 1 Day Ago Rx ~12/08/16 RX: Simvastatin [Zocor TAB] 1 tab PO QHS #30 tablet 07/15/16 3 Days Ago Rx ~12/06/16 RX: amLODIPine [Norvasc] 10 mg PO QDAY #30 tablet 07/15/16 3 Days Ago Rx ~12/06/16 RX: risperiDONE [RisperDAL] 2 mg PO QDAY #30 tablet 07/15/16 1 Month Ago Rx ~11/08/16 RX: oxyCODONE /ACETAMINOPHEN 1 tab PO Q6HR PRN #20 tablet 09/09/16 2 Days Ago Rx [Percocet 5/325 mg] ~12/07/16 RX: levETIRAcetam [Keppra TAB] 500 mg PO BID #60 tablet 12/09/16 Unknown Rx Potassium Chloride [K-Dur] 40 meq PO QDAY 5 Days tablet 12/22/16 Unknown Rx Allergies Allergy/AdvReac Type Severity Reaction Status Date / Time red dye Allergy Severe Shortness Verified 12/08/14 13:55 of Breath ED Review of Systems ROS: Stated complaint: SEIZURE Other details as noted in HPI Constitutional: denies: chills, fever Eyes: denies: eye pain, eye discharge, vision change ENT: denies: ear pain, throat pain Respiratory: denies: cough, shortness of breath, wheezing Cardiovascular: denies: chest pain, palpitations Endocrine: no symptoms reported Gastrointestinal: denies: abdominal pain, nausea, diarrhea Genitourinary: denies: urgency, dysuria, discharge Musculoskeletal: denies: back pain, joint swelling, arthralgia Skin: denies: rash, lesions Neurological: denies: headache, weakness, paresthesias Psychiatric: denies: anxiety, depression Hematological/Lymphatic: denies: easy bleeding, easy bruising ED Past Medical Hx - Past Medical History Previous Medical History?: Yes Hx Hypertension: Yes (SINCE 1985; EF listed on chart as 40%(mentioned on pre- admission notes)) Hx Diabetes: No Hx Deep Vein Thrombosis: No Hx Pulmonary Embolism: No Hx GERD: Yes Hx Liver Disease: No Hx Sickle Cell Disease: No Hx Arthritis: Yes Hx Seizures: Yes (ONE SEIZURE 2009, from brain tumor) Hx Asthma: Yes Hx COPD: No Hx Tuberculosis: No 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 - Surgical History Past Surgical History?: Yes Hx Pacemaker: No Hx Internal Defibrillator: No Hx Cholecystectomy: Yes Additional Surgical History: BRAIN SURGERY/CS - Family History Family history: no significant - Social History Smoking Status: Never Smoker Substance Use Type: None - Medications Home Medications: Home Medications Medication Instructions Recorded Confirmed Last Taken Type RX: ALPRAZolam [Xanax TAB] 0.25 mg PO Q8H #90 tablet 07/15/16 12/19/16 1 Day Ago Rx ~12/08/16 RX: Citalopram [Celexa] 20 mg PO QDAY #30 tablet 07/15/16 12/19/16 Unknown Rx RX: Lisinopril [Zestril TAB] 40 mg PO QDAY #30 tablet 07/15/16 12/19/16 1 Day Ago Rx ~12/08/16 RX: Simvastatin [Zocor TAB] 1 tab PO QHS #30 tablet 07/15/16 12/19/16 3 Days Ago Rx ~12/06/16 RX: amLODIPine [Norvasc] 10 mg PO QDAY #30 tablet 07/15/16 12/19/16 3 Days Ago Rx ~12/06/16 RX: risperiDONE [RisperDAL] 2 mg PO QDAY #30 tablet 07/15/16 12/19/16 1 Month Ago Rx ~11/08/16 RX: oxyCODONE /ACETAMINOPHEN 1 tab PO Q6HR PRN #20 tablet 09/09/16 12/19/16 2 Days Ago Rx [Percocet 5/325 mg] ~12/07/16 RX: levETIRAcetam [Keppra TAB] 500 mg PO BID #60 tablet 12/09/16 12/19/16 Unknown Rx Potassium Chloride [K-Dur] 40 meq PO QDAY 5 Days tablet 12/22/16 Unknown Rx ED Physical Exam - General Limitations: No Limitations General appearance: alert, in no apparent distress - Head Head exam: Present: other (right craniotomy site noted) - Eye Eye exam: Present: normal appearance - ENT ENT exam: Present: mucous membranes moist - Neck Neck exam: Present: normal inspection - Respiratory Respiratory exam: Present: normal lung sounds bilaterally. Absent: respiratory distress - Cardiovascular Cardiovascular Exam: Present: regular rate, normal rhythm. Absent: systolic murmur, diastolic murmur, rubs, gallop - GI/Abdominal GI/Abdominal exam: Present: soft, normal bowel sounds - Extremities Exam Extremities exam: Present: normal inspection - Back Exam Back exam: Present: normal inspection - Neurological Exam Neurological exam: Present: alert, oriented X3 - Psychiatric Psychiatric exam: Present: normal affect, normal mood - Skin Skin exam: Present: warm, dry, intact, normal color. Absent: rash ED Course Vital Signs 08/09/18 00:42 Temperature 98.1 F Pulse Rate 96 H Respiratory 18 Rate Blood Pressure 135/75 O2 Sat by Pulse 98 Oximetry - Reevaluation(s) Reevaluation #1: No seizure activity noted while in ER. Patient was given Keppra and Ativan. CT of head pending 08/09/18 01:41 Reevaluation #2: resting in bed comfortably. No seizure activity noted. CT head pending 08/09/18 02:05 ED Medical Decision Making - Lab Data Result diagrams: 08/09/18 00:51 08/09/18 00:51 - Radiology Data Radiology results: report reviewed FINAL REPORT EXAM: CT Head w/o Contrast CLINICAL INDICATIONS: SZ FINDINGS: Unenhanced CT of the brain was performed and compared to the prior examination December 19, 2016. These images demonstrate that the patient is status post right frontoparietal craniotomy. There are encephalomalacic changes in the right posterior frontal lobe, right anterior temporal lobe, and right anterior parietal lobe which are likely postprocedural. 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 There is intracranial atherosclerosis. The mastoid air cells and middle ears appear clear. There is no evidence of acute sinusitis. IMPRESSION: NO ACUTE INTRACRANIAL HEMORRHAGE Transcribed By: ALONZO Dictated By: SAMMI MARQUEZ MD Electronically Authenticated By: SAMMI MARQUEZ MD Signed Date/Time: 08/09/18 0206 - Medical Decision Making Patient is 67-year-old female with a known seizure history and known history of noncompliance. Patient was noncompliant which started her seizure activity. Patient was given a gram of Keppra and Ativan in the ER and patient does not have any more seizure activity. Patient will be discharged home. Patient is stable for discharge. Patient given discharge instructions. Patient also given a return to ER instructions. Patient voiced understanding. - Differential Diagnosis sz. SDH. Seizure activity. Noncompliance. Critical care attestation.: If time is entered above; I have spent that time in minutes in the direct care of this critically ill patient, excluding procedure time. ED Disposition Clinical Impression: Seizure, Non-compliance Disposition: DC-01 TO HOME OR SELFCARE Is pt being admited?: No Does the pt Need Aspirin: No Condition: Stable Instructions: Epilepsy (ED), Recurrent Seizures Adult (ED) Additional Instructions: Patient follow up with primary care in 3-5 days. Patient to follow up with neurology 3-5 days. Patient to Return to ER if condition worsens. Patient to take all meds as directed. Patient to follow her prescriptions. Patient to rest. Patient to not drive. Referrals: PRIMARY CARE, [Primary Care Provider] - 3-5 Days Time of Disposition: 02:10
[2018-08-09 01:12] LABS: Basophils % (Auto) 0.6 % (0.0-1.8); Eosinophils # (Auto) 0.1 K/mm3 (0.0-0.4); Eosinophils % (Auto) 2.4 % (0.0-4.3); Hemoglobin 13.1 gm/dl (10.1-14.3); Lymphocytes # (Auto) 1.3 K/mm3 (1.2-5.4); Lymphocytes % (Auto) 24.6 % (13.4-35.0); Mean Corpuscular HGB Conc 35 % (30-34); Mean Corpuscular Hemoglobin 33 pg (28-32); Mean Corpuscular Volume 95 fl (79-97); Monocytes # (Auto) 0.6 K/mm3 (0.0-0.8); Monocytes % (Auto) 10.1 % (0.0-7.3); Platelet Count 214 K/mm3 (140-440); Red Blood Count 3.98 M/mm3 (3.65-5.03); Red Cell Distribution Width 12.6 % (13.2-15.2)
--- NOTE | 2018-08-09 02:07 | Cat Scan Report ---
FINAL REPORT EXAM: CT Head w/o Contrast CLINICAL INDICATIONS: SZ FINDINGS: Unenhanced CT of the brain was performed and compared to the prior examination December 19, 2016. These images demonstrate that the patient is status post right frontoparietal craniotomy. There are encephalomalacic changes in the right posterior frontal lobe, right anterior temporal lobe, and right anterior parietal lobe which are likely postprocedural. 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 There is intracranial atherosclerosis. The mastoid air cells and middle ears appear clear. There is no evidence of acute sinusitis. IMPRESSION: NO ACUTE INTRACRANIAL HEMORRHAGE
[2018-08-09 02:38] LABS: Alanine Aminotransferase 18 units/L (7-56); Albumin 3.9 g/dL (3.9-5); BUN/Creatinine Ratio 20; Blood Urea Nitrogen 18 mg/dL (7-17); Calcium 9.8 mg/dL (8.4-10.2); Hemolysis Index 6
[2018-08-09 06:40] VITALS: BP 159/100
== END 2018-08-09 08:35 | disposition home or self-care (01) ==
LOC: ED 00:28
DX: R56.9 Unspecified convulsions (principal); I10 Essential (primary) hypertension; K21.9 Gastro-esophageal reflux disease without esophagitis; M19.90 Unspecified osteoarthritis, unspecified site; J45.909 Unspecified asthma, uncomplicated; Z90.49 Acquired absence of other specified parts of digestive tract; Z79.899 Other long term (current) drug therapy; Z91.09 Other allergy status, other than to drugs and biological substances
CPT/HCPCS: 36415; 70450; 80053; 85025; 96374; 96375; 99284; G0480; J1953; J2060; 80320